=== PATIENT | female | born 1985 | race Caucasian/White ===

== ENCOUNTER 2018-02-02 17:46 | Inpatient (IN) | payer OTHER, SELFPAY ==
[2018-02-02] VITALS (9 sets, daily range): BP systolic 115–128; BP diastolic 58–81; PULSE 94–121; RESP 16–100; TEMP 37.1; O2SAT 96–100; BMI 25.4
[2018-02-02] MEDS: ALBUTEROL 2.5 MG/3 ML NEB (ADULT) INH ×2 (18:08→18:58)
[2018-02-02] MEDS: ALBUTEROL/IPRATROPIUM 3 ML AMPUL INH ×2 (18:08→21:26)
--- NOTE | 2018-02-02 18:18 | ED_ITS ---
HPI - Asthma <GELA Lowe-BC - Last Filed: 02/02/18 22:54> General Chief Complaint: Asthma Stated Complaint: ASTHMA Time Seen by Provider: 02/02/18 18:01 Source: patient Mode of arrival: ambulatory Limitations: no limitations History of Present Illness HPI Narrative: Patient presents with chief complaint of asthma attack for several days. She states her albuterol is not helping her. She has a history of severe asthma with history of ICU admission due to an asthma exacerbation. She denies any fever, productive cough, nausea vomiting diarrhea. Of note she is 10 weeks states her has been normal. She is worried that she is almost out of her preventative as the medication has been over using her albuterol. Related Data Home Medications Medication Instructions Recorded Confirmed albuterol sulfate [Ventolin HFA] 2 puff INH PRN PRN #0 07/22/16 02/03/18 fluticasone [Flovent HFA] INH BID #0 07/22/16 cetirizine 10 mg PO QDAYP PRN #0 02/21/17 02/03/18 [PROBIOTIC] 1 cap PO QPM #0 05/04/17 02/03/18 fexofenadine PO QDAYP PRN #0 05/04/17 Allergies Allergy/AdvReac Type Severity Reaction Status Date / Time latex [LATEX] Allergy Unknown Verified 02/02/18 19:10 meperidine [From DEMEROL] Allergy Unknown Verified 02/02/18 19:10 Review of Systems <GAUTAM LoweP- - Last Filed: 02/02/18 22:54> Review of Systems GENERAL: Denies chills, fatigue, malaise, fever, sweats. HEENT: Denies sinus pain, ear pain, sore throat, difficulty swallowing, dizziness. RESPIRATORY: See HPI CARDIOVASCULAR: Denies chest pain, palpitations, orthopnea, edema, GASTROINTESTINAL: Denies nausea, vomiting, abdominal pain, diarrhea, constipation, melena. : Denies dysuria, frequency, incontinence, hematuria, urinary retention. MUSCULOSKELETAL: denies weakness, joint pain, or bony pain SKIN: Denies rash, skin lesions, or other NEUROLOGIC: Denies weakness, headache, numbness, change in speech, confusion, seizures, incoordination. PSYCHIATRIC: No concerning psychosocial issues. 12 point review of systems is negative except for those stated above Exam <SANTA Lowe - Last Filed: 02/02/18 22:54> Narrative Exam Narrative: GENERAL: This is a well-nourished, well-developed patient, tri podding, 1-2 word dyspnea noted. HEAD: Atraumatic. Normocephalic. No temporal or scalp tenderness. EYES: Pupils equal round and reactive. Extraocular motions intact. No scleral icterus. No injection or drainage. ENT: Nose without bleeding, purulent drainage or septal hematoma. Throat without erythema, tonsillar hypertrophy or exudate. Uvula midline. Airway patent. NECK: Trachea midline. No JVD or lymphadenopathy. Supple, nontender, no meningeal signs. CARDIOVASCULAR: Tachycardic and rhythm without murmurs, gallops, or rubs. RESPIRATORY: Profuse inspiratory and expiratory wheezes noted bilaterally. Profuse tried a perseverative cough. No crackles or rhonchi on exam. GASTROINTESTINAL: Abdomen soft, non-tender, nondistended. No hepato-splenomegaly , or palpable masses. No guarding. EXTREMITIES: No clubbing, cyanosis, or edema. No joint tenderness, effusion, or edema noted. BACK: Nontender without deformity or crepitance. No flank tenderness. NEURO: AOx3. SKIN: No rash or erythema. Initial Vital Signs Initial Vital Signs: Vital Signs Temperature 98.7 F 02/02/18 17:50 Pulse Rate 94 H 02/02/18 17:50 Respiratory Rate 100 H 02/02/18 17:50 Blood Pressure 122/76 02/02/18 17:50 Pulse Oximetry 97 02/02/18 17:50 <Emigdio Garcia DO - Last Filed: 02/03/18 02:28> Initial Vital Signs Initial Vital Signs: Vital Signs Temperature 98.7 F 02/02/18 17:50 Pulse Rate 94 H 02/02/18 17:50 Respiratory Rate 100 H 02/02/18 17:50 Blood Pressure 122/76 02/02/18 17:50 Pulse Oximetry 97 02/02/18 17:50 Course <SANTA Lowe - Last Filed: 02/02/18 22:54> Course Narrative: I checked on the patient several times throughout her stay in the emergency department. She was placed on continuous nebulizers as well as multiple nebs by respiratory therapist. She was treated with IV Solu-Medrol. However she failed an ambulation trial, became incredibly short of breath and was not able to ambulate down the hallway without respiratory distress. I discussed at length with her the etiology of her wheezing as well as her desire to go home. Her cough is complicated by the fact that she is 10 weeks . Given her inability to ambulate, wheezing and bronchospastic cough complicated by her history of an ICU admission due to her asthma, I do not feel she was safe to be discharged. Patient agreed to be admitted for further care. I spoke with Dr. Sheldon who kindly accepted the patient at 22:30. Decision to Admit Date: 02/02/18 Decision to Admit time: 22:20 Orders Ordered: ED Orders 02/02/18 23:51 RT Consult Eval and Treat Now 02/03/18 00:10 MRSA PCR Routine Albuterol/Ipratropium (Duoneb) 3 ml INH RTQ4HR PRN PRN Reason: Shortness Of Breath Methylprednisolone (Solu-Medrol 125 Mg Vial) 60 mg IV Q6HR [facility] Last Admin: 02/03/18 01:03 Dose: 60 mg Discontinued Medications Albuterol (Ventolin) 2.5 mg INH NOW ONE Stop: 02/02/18 18:07 Last Admin: 02/02/18 18:08 Dose: 2.5 mg Albuterol (Ventolin) 2.5 mg INH NOW ONE Stop: 02/02/18 18:58 Last Admin: 02/02/18 18:58 Dose: 2.5 mg Albuterol (Ventolin) 7.5 mg INH NOW ONE Stop: 02/02/18 18:58 Last Admin: 02/02/18 18:59 Dose: 7.5 mg Albuterol/Ipratropium (Duoneb) 3 ml INH NOW ONE Stop: 02/02/18 18:06 Last Admin: 02/02/18 18:08 Dose: 3 ml Albuterol/Ipratropium (Duoneb) 3 ml INH NOW ONE Stop: 02/02/18 21:22 Last Admin: 02/02/18 21:26 Dose: 3 ml Influenza Virus Vaccine (Flu Vaccine) 0.5 ml IM .ONCE ONE Stop: 10/26/18 00:09 Methylprednisolone (Solu-Medrol 125 Mg Vial) 125 mg IV NOW ONE Stop: 02/02/18 18:55 Last Admin: 02/02/18 19:12 Dose: 125 mg Prednisone (Deltasone) 60 mg PO NOW ONE Stop: 02/02/18 18:47 Last Admin: 02/02/18 20:02 Dose: Vital Signs - 8 hr 02/02/18 18:33 02/02/18 18:59 02/02/18 19:10 Temperature 98.7 F Pulse Rate 107 H 121 H 121 H Respiratory Rate 20 22 22 Blood Pressure 122/76 Blood Pressure [Left Arm] 128/81 Pulse Oximetry 97 100 100 02/02/18 19:12 02/02/18 19:22 02/02/18 20:00 Temperature Pulse Rate 99 H 101 H 101 H Respiratory Rate 16 18 Blood Pressure Blood Pressure [Left Arm] 124/61 115/58 L Pulse Oximetry 100 99 02/02/18 20:42 02/02/18 21:11 02/03/18 00:35 Temperature 97.9 F Pulse Rate 98 H 112 H 96 H Respiratory Rate 22 24 20 Blood Pressure 136/50 L Blood Pressure [Left Arm] Pulse Oximetry 96 97 97 <Emigdio Garcia, DO - Last Filed: 02/03/18 02:28> Orders Ordered: ED Orders 02/02/18 23:51 RT Consult Eval and Treat Now 02/03/18 00:10 MRSA PCR Routine Albuterol/Ipratropium (Duoneb) 3 ml INH RTQ4HR PRN PRN Reason: Shortness Of Breath Methylprednisolone (Solu-Medrol 125 Mg Vial) 60 mg IV Q6HR [facility] Last Admin: 02/03/18 01:03 Dose: 60 mg Discontinued Medications Albuterol (Ventolin) 2.5 mg INH NOW ONE Stop: 02/02/18 18:07 Last Admin: 02/02/18 18:08 Dose: 2.5 mg Albuterol (Ventolin) 2.5 mg INH NOW ONE Stop: 02/02/18 18:58 Last Admin: 02/02/18 18:58 Dose: 2.5 mg Albuterol (Ventolin) 7.5 mg INH NOW ONE Stop: 02/02/18 18:58 Last Admin: 02/02/18 18:59 Dose: 7.5 mg Albuterol/Ipratropium (Duoneb) 3 ml INH NOW ONE Stop: 02/02/18 18:06 Last Admin: 02/02/18 18:08 Dose: 3 ml Albuterol/Ipratropium (Duoneb) 3 ml INH NOW ONE Stop: 02/02/18 21:22 Last Admin: 02/02/18 21:26 Dose: 3 ml Influenza Virus Vaccine (Flu Vaccine) 0.5 ml IM .ONCE ONE Stop: 02/03/18 00:09 Methylprednisolone (Solu-Medrol 125 Mg Vial) 125 mg IV NOW ONE Stop: 02/02/18 18:55 Last Admin: 02/02/18 19:12 Dose: 125 mg Prednisone (Deltasone) 60 mg PO NOW ONE Stop: 02/02/18 18:47 Last Admin: 02/02/18 20:02 Dose: Vital Signs - 8 hr 02/02/18 18:33 02/02/18 18:59 02/02/18 19:10 Temperature 98.7 F Pulse Rate 107 H 121 H 121 H Respiratory Rate 20 22 22 Blood Pressure 122/76 Blood Pressure [Left Arm] 128/81 Pulse Oximetry 97 100 100 02/02/18 19:12 02/02/18 19:22 02/02/18 20:00 Temperature Pulse Rate 99 H 101 H 101 H Respiratory Rate 16 18 Blood Pressure Blood Pressure [Left Arm] 124/61 115/58 L Pulse Oximetry 100 99 02/02/18 20:42 02/02/18 21:11 02/03/18 00:35 Temperature 97.9 F Pulse Rate 98 H 112 H 96 H Respiratory Rate 22 24 20 Blood Pressure 136/50 L Blood Pressure [Left Arm] Pulse Oximetry 96 97 97 MDM - Asthma <GELA Lowe-BC - Last Filed: 02/02/18 22:54> MDM Narrative Medical decision making narrative: Patient presents with severe asthma. She was tree of continuous nebulizers in the emergency department. She was not able to tolerate activity and remained short of breath. She did not tolerate ambulation trial. She is not hypoxic, but is not stable enough to be discharged. Dr. Sheldon kindly accepted the patient for an ICU admission. Patient no questions or concerns. Discharge Plan Departure Patient Disposition: Admitted As Inpatient Clinical Impression: Asthma Discharge Date/Time: 02/02/18 23:45 Interventions: ED Discharge Assessment Last Done: 02/02/18 23:45 Admit Date/Time: 02/02/18 22:51 Admit Provider: Paul Sheldon <Emigdio Garcia, - Last Filed: 02/03/18 02:28> [place] ED Attending Scott Attestation: I was immediately available in the department for consultation. Documentation has been reviewed. I agree with assessment and plan.
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
--- NOTE | 2018-02-02 18:34 | PC.NURSE ---
post 2 respiratory treatment
[2018-02-02] MEDS: ALBUTEROL 2.5 MG/3 ML NEB (ADULT) 7.5 MG INH (18:59)
--- NOTE | 2018-02-02 19:07 | PC.NURSE ---
medicated for comfort
[2018-02-02] MEDS: methylPREDNISolone 125 MG/2 ML VIAL IV (19:12)
--- NOTE | 2018-02-02 19:14 | PC.NURSE ---
no furthur coughing, breathing more relaxed, breath sound clear , diminished at the bases. full clear speech and appropriate, skin warm dry pink
--- NOTE | 2018-02-02 21:14 | RT ---
Repeat neb with duoneb given due to spasmodic continuous coughing spasm. Improved after treatment. Patient states her son has a nebulizer machine at home, stating she feels like the neb seems to help with her cough more. Provider notified
[2018-02-03] VITALS (16 sets, daily range): BP systolic 110–144; BP diastolic 44–107; PULSE 89–112; RESP 16–20; TEMP 36.6–37.4; O2SAT 96–99
--- NOTE | 2018-02-03 00:37 | PC.ADMIT ---
Addendum entered by Evelyn Pham R.N. 02/03/18 06:13: Pt states significant improvement in breathing this morning. Ambulated to the bathroom with minimal coughing and no c/o SOB. Sp02 98% RA. Lungs CTA. No acute changes since admission. Original Note: [id number] Admission Note: The patient,Hellen Peterson,32 y/o, was given written information regarding hospital policies, unit procedures and contact persons. Patient's smoking status: Former smoker. Vital Signs - 8 hr 02/02/18 17:50 02/02/18 18:33 02/02/18 18:59 Temperature 98.7 F Pulse Rate 94 H 107 H 121 H Respiratory Rate 100 H 20 22 Blood Pressure 122/76 Blood Pressure [Left Arm] 128/81 Pulse Oximetry 97 97 100 02/02/18 19:10 02/02/18 19:12 02/02/18 19:22 Temperature 98.7 F Pulse Rate 121 H 99 H 101 H Respiratory Rate 22 16 18 Blood Pressure 122/76 Blood Pressure [Left Arm] 124/61 Pulse Oximetry 100 100 02/02/18 20:00 02/02/18 20:42 02/02/18 21:11 Temperature Pulse Rate 101 H 98 H 112 H Respiratory Rate 22 24 Blood Pressure Blood Pressure [Left Arm] 115/58 L Pulse Oximetry 99 96 97 02/03/18 00:35 Temperature 97.9 F Pulse Rate 96 H Respiratory Rate 20 Blood Pressure 136/50 L Blood Pressure [Left Arm] Pulse Oximetry 97 Pt arrived from ER via WC in NAD. VSS, afebrile. Tele SR with HR 90's. Sp02 97%-100% RA. Lungs CTA, moving good air. Persistant bronchospastic [employer] cough, especially severe with ambulation to BR. Plan for BSC next time. HR upt o 130's Sp02 94% during episode. Pt understandably anxious during coughing episode. Reports 10 weeks , has not seen her OB as of yet. Oriented to room, call light and plan of care. Verbalized understanding. Will monitor.
[2018-02-03] MEDS: methylPREDNISolone 125 MG/2 ML VIAL 60 MG IV ×4 (01:03→17:38)
[2018-02-03] MEDS: ALBUTEROL/IPRATROPIUM 3 ML AMPUL INH ×4 (05:53→20:17)
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
[2018-02-03] MEDS: ALBUTEROL 2.5 MG/3 ML NEB (ADULT) INH (08:07)
--- NOTE | 2018-02-03 09:50 | DI.US.S_ITS ---
PROCEDURE: US OB <= 14 WEEKS FETUS INDICATIONS: CRAMPING OUTSIDE/PRIOR DATING DATA: Last menstrual period (LMP): 11/10/17. LMP-based estimated date of delivery (CLEO): 08/17/18. First dating scan (date and location): This study, 02/03/18. Estimated date of delivery (CLEO) from first dating scan: 10/01/18 or -7 days assuming the gestational sac like structure visualized is in fact a gestational sac and that there is an associated viable intrauterine gestation. TECHNIQUE: Real-time scanning was performed of the fetus and maternal pelvic organs, with image documentation. Endovaginal scanning was also performed to better visualize the fetus and maternal ovaries. COMPARISON: None. FINDINGS: Embryo: There is a small intrauterine gestational sac with a mean sac diameter of 1.0 cm which correlates with the very early first trimester gestational age of 5 weeks 5 days. The presence of a yolk sac within this gestational sac confirms intrauterine gestation. Viability is not yet confirmed given the early age and absence of visualized pole. Measurement variability in dating: +/- 4 weeks by LMP, +/- 7 days by mean sac diameter (use before 6 weeks gestation if crown-rump length not able to be measured), +/- 5 days by crown-rump length (up to 8 weeks 6 days gestation), +/- 7 days by crown-rump length (up to 13 weeks 6 days gestation). Maternal organs: Ovaries appear normal considering gestational status. Limited images through the kidneys demonstrate no hydronephrosis. IMPRESSION: First trimester early intrauterine gestation is present given the presence of a yolk sac within the gestational sac. A viable gestation would not be expected to be visualized at this early stage of . Assuming viable gestation is present the liver date would be projected to be centered on 10/01/18, plus or -7 days. Followup repeat early first trimester OB ultrasound likely is warranted in 7-10 days. Dictated by: Daniel King M.D. on 02/03/2018 at 14:40 Approved by: Daniel King M.D. on 02/03/2018 at 14:43
--- NOTE | 2018-02-03 10:09 | PC.NURSE ---
Addendum entered by Samantha Torres R.N. 02/03/18 14:28: message left with Dr. Enriquez's office about finger xr, WBC elevated. pt transfered to room 203 Original Note: Addendum entered by Samantha Torres R.N. 02/03/18 14:21: report given to Ninfa GANT. pt anxious about getting finger XR and being . pt verbalized and stated she felt better. Original Note: Addendum entered by Samantha Torres R.N. 02/03/18 13:03: Dr. Enriquez is to assess finger. re-dressed it with triple antibiotic and telfa. XR ordered. Family at bedside. Original Note: pt up to shower and left 4th finger tip closed in bathroom door. Dr. Enriquez notified. pt back to bed, left hand elevated on pillow with ice pack to finger. 4th finger secured with tongue blade and kerlix. base of finger nail lifted up from trauma and hematoma underneath. Dr. Enriquez notified of temp 99.3, vaginal odor and mild pelvic cramping. Ultra sound ordered.
[2018-02-03 10:42] LABS: Add Manual Diff / Slide Review NO; Basophils Percent Auto 0.2 % (0-2); Hemoglobin 12.3 g/dL (12.0-16.0); Lymphocytes Percent Auto 3.9 % (25-40); Mean Corpuscular HGB Conc 33.2 % (30-36); Mean Corpuscular Hemoglobin 30.3 PG (26-34); Mean Corpuscular Volume 91.3 fL (80-100); Neutrophils Absolute Auto 23600 /uL (3000-5900); Neutrophils Percent Auto 94.9 % (50-75); Platelet Count 369 X10^3/uL (150-400); Red Blood Cell Count 4.05 X10^6/uL (4.0-5.2); Red Cell Distribution Width 13.1 % (11.6-14.8); White Blood Cell Count 24.8 X10^3/uL (4.5-11.0)
--- NOTE | 2018-02-03 13:01 | DI.RAD.S_ITS ---
PROCEDURE: XR FINGER LT MIN 2V INDICATIONS: shut door on finger and nail is partial off TECHNIQUE: AP hand, 2 views of the left fourth finger(s) acquired. COMPARISON: None. FINDINGS: Bones: Acute oblique fracture involving distal shaft of fourth distal phalanx is seen. No significant displacement or angulation is noted at fracture site. No suspicious bony lesions. Soft tissues: No suspicious soft tissue calcifications. Soft tissue swelling around distal portion of fourth digit is seen. IMPRESSION: Acute minimally displaced fracture involving distal shaft of fourth distal phalanx with surrounding soft tissue swelling. Dictated by: Piter Dove M.D. on 02/03/2018 at 13:45 Approved by: Piter Dove M.D. on 02/03/2018 at 13:45
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
[2018-02-03] MEDS: ACETAMINOPHEN 325 MG TABLET 650 MG PO ×2 (13:10→18:54)
--- NOTE | 2018-02-03 13:11 | P.PN_ITS ---
Subjective Date Patient Seen: 02/03/18 Time Patient Seen: 13:08 Interval history: Patient got her finger slammed in a door in the bathroom. Here to examine it. Patient's 4th digit on left hand. Trauma to the tip of the finger. Proximal aspect of the nail has been avulsed from the nail bed. Sensitive to the touch. Bleeding has stopped. Pain is minimal. Exam Vital Signs (past 8 hours): - 02/03/18 05:57 02/03/18 06:00 02/03/18 08:07 Temperature 98.2 F Pulse Rate 99 H 100 H Respiratory Rate 20 17 Blood Pressure 132/79 Pulse Oximetry 98 98 98 02/03/18 09:12 02/03/18 11:52 Temperature 99.3 F Pulse Rate 110 H Respiratory Rate 20 Blood Pressure 118/44 L Pulse Oximetry 98 97 Oxygen Delivery Method Room Air Oxygen Flow Rate 0 Narrative Exam Narrative: Proximal nail avulsion of the 4th digit of the left finger with bruising and mild bleeding Objective Labs Result Diagrams: 02/03/18 10:08 Labs: Laboratory Results - last 24 hr 02/03/18 02/03/18 00:10 10:08 WBC 24.8 H RBC 4.05 Hgb 12.3 Hct 37.0 MCV 91.3 MCH 30.3 MCHC 33.2 RDW 13.1 Plt Count 369 Neut % (Auto) 94.9 H Lymph % (Auto) 3.9 L [place] % (Auto) 1.0 L Eos % (Auto) 0.0 L Baso % (Auto) 0.2 Neut # (Auto) 15014 H Nasal Screen MRSA (PCR) Negative for mrsa Assessment & Plan Plan: Assessment/Plan Narrative: Proximal nail avulsion due to injury in the bathroom door. X-ray of the finger we done. Bacitracin nonstick Telfa and bandage will be placed over the top. There is a fracture we will considered open and place her on an antibiotic and splint. If just trauma to the now. We will dress and bandaged appropriately. Abdominal cramping and previous vaginal bleeding. Ultrasound shows 5 week intrauterine gestational based on report from the sound engineering technician. Quality VTE Deep Vein Thrombosis/Pulmonary Embolism Present on Admission: No
--- NOTE | 2018-02-03 13:42 | CM.IDA ---
Discharge Planning/Care Management CM Discharge Assessment Start: 02/03/18 13:01 Freq: Status: Active Protocol: Document 02/03/18 13:03 TRUMAN (Rec: 02/03/18 13:42 TRUMAN [id number]) Discharge Planning Assessment Assigned Oil Driller STEWART Garcia DPOA/Assigned Designee Name Octavio Peterson, spouse Contact Information [phone] Advance Directives? No History Provided By Patient Prior Living Arrangements House Household Members spouse children Type of transporation used prior to Drives own vehicle admit Independent with ADL's Yes Is patient alert and oriented? Yes Comment Very lou 32 yo, indp and active, mom to a 9 and 2 yo. Spouse taking time off work to take care of kiddos. Pt is 10 wks . Caregiver for Another Yes: Children Comment Met w/pt today, explained role . Pt feels she has all she needs for her return home once medically stable. Spouse can take some time off work but pt does not indicate how long. Pt's and two kiddos entered the room at this point . Name/contact info left on pt 's whiteboard. Barriers to Discharge No Comment CM team following closely in case any DC needs or concerns arise. Discharge Plan Home Transportation Arrangement Family Referrals Initiated None needed Additional Comment None needed at this time. Inpatient Status as of 02/02/18 Whiteboard Updated in Patient Room with Yes name and ext. # of Oil Driller Review Status In Process
--- NOTE | 2018-02-03 23:09 | PC.NURSE ---
1900 - Pt c/o pain to left AC IV site. Site visual assessment WNL, no erythema no bruising. Site flushes without pain. Pt states a small bump in skin at insertion site as internal hemorrhage. Reviewed site assessment and UE elevated on pillow. Pt also c/o numbness to the tip of fx left finger. Drsg taken down for visual assessment. WNL. Drsg replaced. Ice pack. Elevated on pillow. APAP given for pain.
[2018-02-04 00:55] VITALS: BP 104/48; PULSE 97; RESP 20; TEMP 36.9; O2SAT 98
[2018-02-04 01:05] VITALS: O2SAT 98
[2018-02-04 06:04] LABS: Blood Urea Nitrogen 10 mg/dL (7-17); Calcium 9.5 mg/dL (8.4-10.2); Carbon Dioxide 23 mmol/L (22-32); Chloride 104 mmol/L (98-107); Estimated Glomerular Filt Rate > 60.0 mL/min (>60); Glucose 123 mg/dL (70-100); HEMOLYSIS < 15 (0-50); Potassium 4.1 mmol/L (3.4-5.1); Sodium 140 mmol/L (137-145)
[2018-02-04] MEDS: predniSONE 20 MG TABLET 60 MG PO (06:19)
[2018-02-04 06:23] VITALS: BP 104/56; PULSE 86; RESP 18; TEMP 36.8; O2SAT 98
[2018-02-04 07:25] VITALS: BP 107/52; PULSE 74; RESP 16; TEMP 36.7; O2SAT 97
--- NOTE | 2018-02-04 08:54 | PM.DS.1 ---
History of Present Illness Chief complaint: ASTHMA Narrative: 32-year-old female G3 para 2 approximately 10 weeks . Admit to the hospital with asthma exacerbation. She has had has mild on and off for many years. Previously hospitalized during her last for an asthma exacerbation. She is admitted to the ICU she did not require mechanical ventilation. She says her asthma is exacerbated by the cold weather certain allergies and her previous . She states her symptoms began about 1 week ago. She began to become short of breath like she related with her previous asthma symptoms she used her albuterol inhaler at home. She is trying some natural things like honey an elder [place]. She says despite using her albuterol inhaler her symptoms got worse. She then went to use her Flonase Flovent which she did not really or had not really needed for quite some time. She noticed that they were . Over the last 48 hr her breathing got worse and worse despite her best efforts and patient came to the emergency room. Where she was found to have an exacerbation of her asthma requiring hospital admission. She is 10 weeks . Two previous normal pregnancies. She says she has some initial spotting and bleeding but she said her last test everything was okay. She has an obstetrical appointment here in the next few weeks. Her current symptoms include cough feeling of shortness of breath chest tightness and heaviness. She says she is hungry. She says she slept okay last night. She has not had a flu shot this year. Her oxygen status has remained stable. Discharge Providers Date of admission: 02/02/18 22:51 Discharge provider: Anoop Enriquez MD Discharge Date: 02/04/18 Summary Discharge Diagnosis: Acute asthma exacerbation Intrauterine Fracture 4th phalanx left hand Hospital Course: Patient was admitted the hospital for acute asthma exacerbation. Patient was given IV steroids and then transitioned to oral steroids. She received nebulizers. Over the ensuing hospital stay she had improvement of her respiratory status her breathing as well as her wheezing was much improved. By the time she was leaving she was stable on room air oxygen had no further wheezing had an intermittent cough and was responding to medication. Patient's finger was wrapped and splinted. She will watch for signs of infection. Time Spent with Patient Less than 30 minutes Exam Vital Signs (past 8 hours): - 02/04/18 00:55 02/04/18 01:05 02/04/18 06:23 Temperature 98.4 F 98.2 F Pulse Rate 97 H 86 Respiratory Rate 20 18 Blood Pressure 104/48 L 104/56 L Pulse Oximetry 98 98 98 02/04/18 07:25 Temperature 98.1 F Pulse Rate 74 Respiratory Rate 16 Blood Pressure 107/52 L Pulse Oximetry 97 Oxygen Delivery Method Room Air Oxygen Flow Rate 0 Narrative Exam Narrative: Gen.: Alert and oriented x3 no apparent distress. HEENT: NCAT PERRLA tympanic membranes are clear nares are patent oral mucosa is moist no tonsillar hypertrophy neck is supple without lymphadenopathy no thyroid enlargement. Cardio: S1-S2 regular rate and rhythm no murmurs appreciated. Respiratory: Lungs are clear to auscultation no wheezes or crackles normal respiratory effort. Abdomen: Soft nontender no rebound or guarding no liver spleen enlargement no appreciable hernias Extremities: Full range of motion no appreciable weakness no cyanosis or edema. Neurologic: Grossly intact. Objective Labs Result Diagrams: 02/03/18 10:08 02/04/18 05:31 Labs: Laboratory Results - last 24 hr 02/03/18 02/04/18 10:08 05:31 WBC 24.8 H RBC 4.05 Hgb 12.3 Hct 37.0 MCV 91.3 MCH 30.3 MCHC 33.2 RDW 13.1 Plt Count 369 Neut % (Auto) 94.9 H Lymph % (Auto) 3.9 L [place] % (Auto) 1.0 L Eos % (Auto) 0.0 L Baso % (Auto) 0.2 Neut # (Auto) 66354 H Sodium 140 Potassium 4.1 Chloride 104 Carbon Dioxide 23 BUN 10 Creatinine 0.50 L Estimated GFR > 60.0 BUN/Creatinine Ratio 20.0 Glucose 123 H Calcium 9.5 Discharge Plan Discharge Plan Discharge Problem: Asthma Patient Disposition: Home Discharge comment: Home follow-up in 7 days Discharge Med Rec/Prescriptions Prescriptions: New fluticasone [Flovent HFA] 110 mcg/actuation HFA aerosol inhaler 2 puff INHALATION BID Qty: 12 RF: 3 prednisone 20 mg tablet See Label Instructions .ROUTE .COMPLEX Qty: 40 RF: 0 Continue fluticasone [Flovent HFA] 110 mcg/actuation Hfa Aerosol Inhaler 1 puff INH BID Qty: 0 RF: 0 albuterol sulfate [Ventolin HFA] 90 MCG/PUFF HFA aerosol inhaler 2 puff INH PRN PRN (Reason: Bronchospasm) Qty: 0 RF: 0 cetirizine 10 MG tablet 10 mg PO QDAYP PRN (Reason: Allergy Symptoms) Qty: 0 RF: 0 fexofenadine 180 mg Tablet 1 tab PO QDAYP PRN (Reason: Allergy Symptoms) Qty: 0 RF: 0 [PROBIOTIC] 1 cap PO QPM Qty: 0 RF: 0 Skin/Wound/Dressing Care Dressing: wound care to finger twice daily. Discharge Data Attending Provider: Anoop Enriquez Admit Date/Time: 02/02/18 22:51 Quality VTE Deep Vein Thrombosis/Pulmonary Embolism Present on Admission: No
--- NOTE | 2018-02-04 09:19 | PC.NURSE ---
Pt alert and oriented, voicing appropriate concerns and questions. Independent in room. Set up for B'fast.
--- NOTE | 2018-02-04 09:53 | PC.NURSE ---
Resp rate even, some coarseness though clear. No overt tightness. Pt's Left fourth finger continues bandaged and splinted. Pt states to come and see today. Pt up independently with visitor in room.
--- NOTE | 2018-02-04 12:14 | PC.NURSE ---
Pt discharged to care of friend. IV d/c'd intact. Dressing supplies given to Pt along with instructions. Pt offers no overt complaint with plan and is comfortable with Dr. Enriquez's plan. Pt escorted to car by Lydia EDWARDS
== END 2018-02-04 12:15 | disposition home or self-care (01) | DRG 832 ==
LOC: ED 17:58 → ICU 22:52 → AC 02-03 14:32
PROVIDERS: Admitting Provider Internal Medicine; Emergency Provider Nurse Practitioner Family; Visit Provider Family Medicine
DX: O26.891 Other specified pregnancy related conditions, first trimester (principal); J45.901 Unspecified asthma with (acute) exacerbation; Z3A.10 10 weeks gestation of pregnancy; S67.194A Crushing injury of right ring finger, initial encounter; S62.634A Displaced fracture of distal phalanx of right ring finger, initial encounter for closed fracture; W23.1XXA Caught, crushed, jammed, or pinched between stationary objects, initial encounter
CPT/HCPCS: 36415; 73140; 76801; 76817; 80048; 85025; 87797; 94150; 94640; 96374; 99223; 99238; 99283; 99284; J2930; J7613

== ENCOUNTER → 2018-03-07 09:13 | Outpatient (CLI) | payer OTHER, SELFPAY ==
[2018-02-02 22:54] VITALS: BMI 25.4
[2018-03-07 10:22] LABS: Add Manual Diff / Slide Review NO; Basophils Percent Auto 0.5 % (0-2); Eosinophils Percent Auto 0.7 % (2-4); Hematocrit 38.4 % (36-46); Lymphocytes Percent Auto 29.4 % (25-40); Mean Corpuscular HGB Conc 33.9 % (30-36); Mean Corpuscular Hemoglobin 30.8 PG (26-34); Mean Corpuscular Volume 90.8 fL (80-100); Monocytes Percent Auto 5.9 % (3-14); Neutrophils Absolute Auto 6000 /uL (3000-5900); Neutrophils Percent Auto 63.5 % (50-75); Platelet Count 349 X10^3/uL (150-400); Red Blood Cell Count 4.23 X10^6/uL (4.0-5.2); Red Cell Distribution Width 13.2 % (11.6-14.8); White Blood Cell Count 9.5 X10^3/uL (4.5-11.0)
[2018-03-07 10:23] LABS: Appearance Urine UA CLEAR; Bilirubin Urine UA NEGATIVE (NEGATIVE); Color Urine UA YELLOW; Glucose Urine UA NEGATIVE (Normal); Ketones Urine UA NEGATIVE (NEGATIVE); Leukocyte Esterase Urine UA TRACE (NEGATIVE); Nitrite Urine UA NEGATIVE (Negative); Occult Blood Urine UA NEGATIVE (Negative); Protein Urine UA NEGATIVE (Negative); Specific Gravity Urine UA <=1.005 (1.000-1.035); Urobilinogen Urine UA 0.2 E.U./dL (0.2); pH Urine UA 7.5 (4.5-8.0)
[2018-03-07 10:40] LABS: Bacteria Urine None Seen
[2018-03-07 10:43] LABS: RBC Urine 0-1/HPF (0-5/HPF); Squamous Epithelial Cell Urine 1-5 /HPF; WBC Urine 1-5/HPF (0-5/HPF)
[2018-03-07 11:47] LABS: Hepatitis B Surface Antigen NEGATIVE s/c (NEGATIVE); Rubella Antibody IgG 71.8 IU/mL (>15)
[2018-03-07 12:10] LABS: HIV 1 and 2 Antibody NEGATIVE (NEGATIVE); Hep C Virus Ab w/Reflex Quant NEGATIVE s/c (NEGATIVE)
[2018-03-09 14:46] LABS: RPR Screen Nonreactive (Nonreactive)
[2018-03-10 15:39] LABS: HSV 2 IGG AB 6.01 index (< 0.90); HSV1IGG 8.02 index (< 0.90)
== END ==
PROVIDERS: PCP Family Medicine; Visit Provider Family Medicine
DX: Z34.91 Encounter for supervision of normal pregnancy, unspecified, first trimester (principal)
CPT/HCPCS: 36415; 80055; 81003; 81015; 86695; 86696; 86703; 86787; 86803; 86850; 86900; 86901; 87086

== ENCOUNTER → 2018-05-31 12:06 | Outpatient (CLI) | payer OTHER, SELFPAY ==
[2018-02-02 22:54] VITALS: BMI 25.4
--- NOTE | 2018-05-31 12:07 | DI.US.S_ITS ---
PROCEDURE: US OB >= 14 WEEKS FETUS INDICATIONS: ANATOMY OUTSIDE/PRIOR DATING DATA: Last menstrual period (LMP): Not available. LMP-based estimated date of delivery (CLEO): Not available. First dating scan (date and location): This study, [facility]. Estimated date of delivery (CLEO) from first dating scan: 09/25/18. TECHNIQUE: Real-time scanning was performed of the fetus, with image documentation and biometric measurements. Endovaginal scanning: Not needed for this study COMPARISON: [facility], , OB >= 14 WEEKS FETUS, 05/22/2018, 10:57. FINDINGS: General: A single living intrauterine gestation is present. Presentation: Vertex. Placenta: Placental position is anterior, without previa. Amniotic fluid index: 17.3 cm, normal range is 5-24 cm. heart rate: 135 beats per minute. Maternal cervical canal: 3.1 cm long. Normal lower limit is 2.5 cm. biometrics: Biparietal diameter: 5.8 cm, 23 weeks 5 days Head circumference: 21.5 cm, 23 weeks 4 days Abdominal circumference: 19.0 cm, 23 weeks 5 days Femur length: 3.8 cm, 20 weeks 1 day Estimated gestational age from initial scan: not applicable. Composite gestational age from present scan: 23 weeks 2 days Estimated weight: 564 g Measurement variability for biometric dating: +/- 7 days from 14 weeks to 15 weeks 6 days gestation, +/- 10 days from 16 weeks to 21 weeks 6 days gestation, +/- 2 weeks from 22 weeks to 27 weeks 6 days gestation, +/- 3 weeks for 28 weeks gestation or later. weight reference: 4500 g or EFW >90/95% is considered macrosomia or large for gestational age. EFW <10% is small for gestational age. EFW 5% or less is considered intra-uterine growth restriction. Anatomic survey: Neuro: Ventricles are non-dilated at less than 10 mm. Cisterna magna is normal at 3-11 mm. Cerebellum is normal in size and morphology. Nuchal skin fold: Normal at less than 6 mm between 14-21 weeks gestational age. Face: Nose and lips, facial profile are normal. Spine: No evidence for spina bifida. Heart: 4-chambered heart is present, with normal ventricular outflow tracts. Diaphragm: Diaphragm is intact. Stomach: Left-sided stomach is present. Kidneys: No hydronephrosis. Normal is less than 5 mm in 2nd trimester, less than 7 mm in 3rd trimester. Cord: 3-vessel cord has orthotopic insertion. Bladder: Normal in size. Extremities: All 4 extremities identified. IMPRESSION: 23 week 2 day gestational age with no evidence of anomaly. Heart rate 135 beats per minute, delivery date is projected to be centered on 09/25/18. No anomaly seen. Dictated by: Daniel King M.D. on 05/31/2018 at 13:29 Approved by: Daniel King M.D. on 05/31/2018 at 13:31
== END ==
PROVIDERS: Family Provider Specialist; PCP Family Medicine; Visit Provider Specialist
DX: Z36.89 Encounter for other specified antenatal screening (principal); Z3A.23 23 weeks gestation of pregnancy
CPT/HCPCS: 76811

== ENCOUNTER → 2018-06-23 09:39 | Outpatient (CLI) | payer OTHER, SELFPAY ==
[2018-02-02 22:54] VITALS: BMI 25.4
[2018-06-23 12:20] LABS: Hematocrit 31.5 % (36-46); Hemoglobin 10.7 g/dL (12.0-16.0)
[2018-06-23 14:31] LABS: GTT (PREG) 1 Hour PP 50gm Dose 104 mg/dL (76-139)
== END ==
PROVIDERS: Family Provider Specialist; PCP Family Medicine; Visit Provider Specialist
DX: Z20.818 Contact with and (suspected) exposure to other bacterial communicable diseases (principal); Z34.82 Encounter for supervision of other normal pregnancy, second trimester; Z3A.26 26 weeks gestation of pregnancy
CPT/HCPCS: 36415; 82950; 85014; 85018; 87081

== ENCOUNTER → 2018-06-24 13:36 | Outpatient (CLI) | payer OTHER, SELFPAY ==
[2018-02-02 22:54] VITALS: BMI 25.4
== END ==
PROVIDERS: Family Provider Specialist; PCP Family Medicine; Visit Provider Physician Assistant
DX: J02.9 Acute pharyngitis, unspecified (principal)
CPT/HCPCS: 87070

== ENCOUNTER → 2018-09-07 13:49 | Outpatient (CLI) | payer OTHER, SELFPAY ==
[2018-02-02 22:54] VITALS: BMI 25.4
[2018-09-08 14:10] LABS: Strep Grp B PCR NEG for Grp B Strep
== END ==
PROVIDERS: Family Provider Specialist; PCP Family Medicine; Visit Provider Specialist
DX: Z34.83 Encounter for supervision of other normal pregnancy, third trimester (principal); Z3A.36 36 weeks gestation of pregnancy
CPT/HCPCS: 87653

== ENCOUNTER 2018-09-19 08:02 | Observation (INO) | payer OTHER, SELFPAY ==
[2018-02-02 22:54] VITALS: BMI 25.4
--- NOTE | 2018-09-19 09:36 | PM.OBTRLD ---
Visit Information Visit Information Reason for Evaluation: Yes rule out labor [facility] Medical History (Updated 09/19/18 @ 09:38 by Edel Juárez MD) Asthma (Chronic ~2016) Chiari malformation type I (Chronic ~2016) GERD (gastroesophageal reflux disease) (Chronic) Heavy menstrual period (Chronic) Herpes (Chronic) Human papilloma virus (Chronic) Post traumatic stress disorder (PTSD) (Chronic) Abnormal Pap smear of cervix (Resolved) Surgical History (Updated 02/16/18 @ 21:57 by Anisha Michaud) Anesthesia (Resolved) Cyst (Resolved) History of appendectomy (Resolved) History of surgery (Resolved) History of tonsillectomy (Resolved) Family History (Updated 02/16/18 @ 22:00 by Anisha Michaud) Father Heart disease Hyperlipidemia Hypertension Mother Chiari malformation type I Asthma Brother Asthma Sister Asthma Social History household members: spouse and children Smoking Status: Former smoker Social History household members: spouse and children Smoking Status: Former smoker Evaluation Evaluation Baseline heart rate: 140 Variability: Moderate (11-25) monitor accelerations: Present monitor decelerations: Absent Contraction Frequency (minutes): 4 Uterine Contraction Intensity: Moderate Category of Tracing: I Cervical dilation (cm): 0 Diagnosis, Plan/Disposition Final Diagnosis (1) Irregular contractions: Current Visit: Yes Status: Acute Plan/Disposition Plan: After 1.5hrs ambulation, no change in cervical dilation. Stable to d/c home. Discussed precautions for returning. OB Disposition: home
--- NOTE | 2018-09-19 09:39 | P.TNLD_ITS ---
Visit Information Visit Information Reason for Evaluation: Yes rule out labor [facility] Medical History (Updated 09/19/18 @ 09:38 by Edel Juárez MD) Asthma (Chronic ~2016) Chiari malformation type I (Chronic ~2016) GERD (gastroesophageal reflux disease) (Chronic) Heavy menstrual period (Chronic) Herpes (Chronic) Human papilloma virus (Chronic) Post traumatic stress disorder (PTSD) (Chronic) Abnormal Pap smear of cervix (Resolved) Surgical History (Updated 02/16/18 @ 21:57 by Anisha Michaud) Anesthesia (Resolved) Cyst (Resolved) History of appendectomy (Resolved) History of surgery (Resolved) History of tonsillectomy (Resolved) Family History (Updated 02/16/18 @ 22:00 by Anisha Michaud) Father Heart disease Hyperlipidemia Hypertension Mother Chiari malformation type I Asthma Brother Asthma Sister Asthma Social History household members: spouse and children Smoking Status: Former smoker Social History household members: spouse and children Smoking Status: Former smoker Evaluation Evaluation Baseline heart rate: 140 Variability: Moderate (11-25) monitor accelerations: Present monitor decelerations: Absent Contraction Frequency (minutes): 4 Uterine Contraction Intensity: Moderate Category of Tracing: I Cervical dilation (cm): 0 Diagnosis, Plan/Disposition Final Diagnosis (1) Irregular contractions: Current Visit: Yes Status: Acute Plan/Disposition Plan: After 1.5hrs ambulation, no change in cervical dilation. Stable to d/c home. Discussed precautions for returning. OB Disposition: home
== END 2018-09-19 10:03 | disposition home or self-care (01) ==
PROVIDERS: Admitting Provider Specialist; Family Provider Specialist; PCP Family Medicine; Visit Provider Specialist
DX: Z36.9 Encounter for antenatal screening, unspecified (principal); O62.2 Other uterine inertia; R10.31 Right lower quadrant pain; Z3A.39 39 weeks gestation of pregnancy
CPT/HCPCS: 59025; 59050; G0378; G0379

== ENCOUNTER 2018-09-25 11:59 | Outpatient (CLI) | payer OTHER, SELFPAY ==
[2018-02-02 22:54] VITALS: BMI 25.4
--- NOTE | 2018-09-25 12:44 | PM.OBTRLD ---
Visit Information Visit Information Date of evaluation: 09/25/18 Primary OB Provider: Ana Elizabeth Reason for Evaluation: Yes rule out labor Vital Signs Vital Signs: Blood pressure 122/68, pulse 95, temperature 37.0? [facility] Medical History (Updated 09/19/18 @ 09:38 by Edel Juárez MD) Asthma (Chronic ~2016) Chiari malformation type I (Chronic ~2016) GERD (gastroesophageal reflux disease) (Chronic) Heavy menstrual period (Chronic) Herpes (Chronic) Human papilloma virus (Chronic) Post traumatic stress disorder (PTSD) (Chronic) Abnormal Pap smear of cervix (Resolved) Surgical History (Updated 02/16/18 @ 21:57 by Anisha Michaud) Anesthesia (Resolved) Cyst (Resolved) History of appendectomy (Resolved) History of surgery (Resolved) History of tonsillectomy (Resolved) Family History (Updated 02/16/18 @ 22:00 by Anisha Michaud) Father Heart disease Hyperlipidemia Hypertension Mother Chiari malformation type I Asthma Brother Asthma Sister Asthma Social History household members: spouse and children Smoking Status: Former smoker Social History household members: spouse and children Smoking Status: Former smoker Evaluation Evaluation Baseline heart rate: 120 Variability: Moderate (11-25) monitor accelerations: Present monitor decelerations: Absent Contraction Frequency (minutes): 0 Category of Tracing: I Non-invasive Membranes Rupture Test: negative Diagnosis, Plan/Disposition Final Diagnosis (1) Irregular contractions: Current Visit: No Status: Acute Plan/Disposition Plan: Patient not in active labor with no rupture membranes follow-up appointment in 2 days OB Disposition: home
== END 2018-09-25 12:56 | disposition home or self-care (01) ==
LOC: LABOR 12:24 → OB 09-26 15:35
PROVIDERS: Family Provider Specialist; PCP Family Medicine; Visit Provider Specialist
DX: O47.1 False labor at or after 37 completed weeks of gestation (principal); W18.39XA Other fall on same level, initial encounter; Z3A.39 39 weeks gestation of pregnancy
CPT/HCPCS: 59025; 84112; G0378; G0379

== ENCOUNTER 2018-09-26 11:21 | Outpatient (CLI) | payer OTHER, SELFPAY ==
[2018-02-02 22:54] VITALS: BMI 25.4
== END 2018-09-26 12:11 | disposition home or self-care (01) ==
LOC: LABOR 12:11 → OB 09-28 15:11
PROVIDERS: Family Provider Specialist; PCP Family Medicine; Visit Provider Specialist
DX: O26.893 Other specified pregnancy related conditions, third trimester (principal); R10.31 Right lower quadrant pain; Z3A.39 39 weeks gestation of pregnancy
CPT/HCPCS: 59025; G0378; G0379

== ENCOUNTER 2018-09-29 06:54 | Inpatient (IN) | payer OTHER, SELFPAY ==
[2018-02-02 22:54] VITALS: BMI 25.4
--- NOTE | 2018-09-29 07:29 | PM.OBHP.1 ---
OB HPI Date/Time Date of admission: 09/29/18 Date Patient Seen: 09/29/18 Time Patient Seen: 07:29 History of Present Condition Chief complaint: : 9 Para: 2 Estimated Date of Delivery: 10/01/18 Estimated Gestational Age (weeks): 39 Narrative: Hellen Peterson is a 32 year old female admitted for induction for maternal discomfort Indications Indication for induction OB: maternal discomfort History of Present care: good care, initiated at week # (10), number of visits (12) and pounds weight gain (27) Dating criteria: LMP confirmed by 1st trimester US Ultrasounds: normal mid trimester US Obstetrical complications: none Medical complications: none Preadmission Labs Blood type: O (+) positive -: Antibody screen: negative, GBS status: negative, HBsAG: negative, HIV: negative, HSV 1: positive, HSV 2: positive and RPR/VDLR: negative -: Chlamydia screen: not detected -: Rubella: immune and Varicella: immune HCAB: negative PAP: Normal 1 hr GTT: 104 Prior (ies) History: 5 SAB, 04/03/09 Male, 8# 15oz 06/07/15 Male 8# 13oz Evaluation Evaluation Baseline heart rate: 130 Variability: Moderate (11-25) monitor accelerations: Present monitor decelerations: Absent Contraction Frequency (minutes): 5 Uterine Contraction Intensity: Moderate Category of Tracing: I Cervical dilation (cm): 3 Cervical effacement (%): 75 station: -1 [facility] Medical History (Updated 09/19/18 @ 09:38 by Edel Juárez MD) Asthma (Chronic ~2015) Chiari malformation type I (Chronic ~2015) GERD (gastroesophageal reflux disease) (Chronic) Heavy menstrual period (Chronic) Herpes (Chronic) Human papilloma virus (Chronic) Post traumatic stress disorder (PTSD) (Chronic) Abnormal Pap smear of cervix (Resolved) Surgical History (Updated 02/16/18 @ 21:57 by Anisha Michaud) Anesthesia (Resolved) Cyst (Resolved) History of appendectomy (Resolved) History of surgery (Resolved) History of tonsillectomy (Resolved) Family History (Updated 02/16/18 @ 22:00 by Anisha Michaud) Father Heart disease Hyperlipidemia Hypertension Mother Chiari malformation type I Asthma Brother Asthma Sister Asthma Social History household members: spouse and children Smoking Status: Former smoker Social History household members: spouse and children Smoking Status: Former smoker Meds Home Medications Medication Instructions Recorded Confirmed Type albuterol sulfate [Ventolin HFA] 2 puff INH PRN PRN #0 07/22/16 08/23/18 History cetirizine 10 mg PO QDAYP PRN #0 02/21/17 08/23/18 History [PROBIOTIC] 1 cap PO QPM #0 05/04/17 08/23/18 History fexofenadine 1 tab PO QDAYP PRN #0 05/04/17 08/23/18 History fluticasone propionate [Flovent 2 puff INHALATION BID #12 gram 02/04/18 08/23/18 Rx HFA] acyclovir 400 mg tablet 400 mg PO BID #60 tab 09/07/18 Rx Double Electric Breast Pump #1 each 09/18/18 Rx Allergies Allergy/AdvReac Type Severity Reaction Status Date / Time latex [LATEX] Allergy Unknown Verified 08/23/18 15:52 meperidine [From DEMEROL] Allergy Unknown Verified 08/23/18 15:52 cold urticaria AdvReac Uncoded 08/23/18 15:52 Review of Systems Review of Systems Patient denies headaches, scotomata, epigastric pain. Baby has been moving well. No rupture membranes. She is having contractions. All systems reviewed & are unremarkable except as noted in HPI and below Exam Vital Signs (past 8 hours): Blood pressure 118/70, pulse 79, temperature 97.9 Narrative Exam Narrative: HEENT exam within normal limits. Lungs are clear to auscultation and percussion. Heart is regular rate and rhythm no S3-S4 or murmurs. Abdomen is gravid. Extremities without edema and nontender. Objective Labs Result Diagrams: 09/29/18 07:50 Assessment and Plan Assessment and Plan Assessment and Plan narrative: 39w5d with maternal discomfort admitted for Pitocin induction for maternal discomfort.
[2018-09-29] MEDS: LACTATED RINGERS 1,000 ML 100 ML IV ×3 (07:50→13:59)
[2018-09-29] MEDS: OXYTOCIN PREMIX 30 UNIT/500 ML PLAST..BAG IV (08:17)
[2018-09-29 08:22] VITALS: BP 118/70
[2018-09-29 08:28] LABS: Add Manual Diff / Slide Review NO; Basophils Absolute Auto 100 /uL (0-100); Basophils Percent Auto 0.9 % (0-2); Eosinophils Absolute Auto 100 /uL (0-450); Eosinophils Percent Auto 0.7 % (2-4); Hematocrit 34.1 % (36-46); Hemoglobin 11.4 g/dL (12.0-16.0); Lymphocytes Absolute Auto 2900 /uL (1100-4500); Lymphocytes Percent Auto 24.7 % (25-40); Mean Corpuscular HGB Conc 33.4 % (30-36); Mean Corpuscular Volume 89.7 fL (80-100); Monocytes Absolute Auto 700 /uL (0-900); Monocytes Percent Auto 6.1 % (3-14); Neutrophils Absolute Auto 7900 /uL (1500-7000); Neutrophils Percent Auto 67.6 % (50-75); Platelet Count 334 X10^3/uL (150-400); Red Cell Distribution Width 14.3 % (11.6-14.8); White Blood Cell Count 11.7 X10^3/uL (4.5-11.0)
--- NOTE | 2018-09-29 19:16 | PM.OBPRVD ---
Delivery date: 09/29/18 Intrapartal events: None Induction method: per pitocin protocol Delivery augmentation: rupture of membranes Delivery monitor: external FHT and external uterine Route of delivery: L&D Laceration Description: Perineal - 2nd Degree Delivery repair: chromic (3-0) Estimated blood loss (mL): 150 Anesthesia type: Epidural Narrative: Patient was admitted for induction maternal discomfort. She received Pitocin. She received an epidural catheter for pain control. She had AROM for clear fluid. She progressed to complete pushing. After delivery of the head there was a 2 minutes shoulder dystocia. The shoulder delivered after suprapubic pressure and rotation of the anterior shoulder. The delivered spontaneously and was placed on maternal abdomen. After approximately 1 minute of stimulation without adequate respiratory effort the cord was clamped cut and the infant taken to the warmer. The baby responded quickly to stimulation there. The placenta delivered spontaneously, intact, with 3 vessels. There were no cervical or vaginal tears. A midline second-degree tear was repaired with 3 0 chromic suture in the usual 2 layer fashion. Estimated blood loss 150 cc. Both infant mother doing well. Baby 1: gender: Male Presentation: vertex position: Right Occiput Anterior Placenta delivery description: Spontaneous cord vessel description: 3 Vessels score (1 min): 7 score (5 min): 9 Plan for aftercare: Routine care
[2018-09-29 21:32] VITALS: TEMP 36.9
[2018-09-29] MEDS: IBUPROFEN 600 MG TABLET PO (21:32)
[2018-09-29] MEDS: DERMOPLAST SPRAY 20% 60 ML 1 SPRAY TOP (21:32)
[2018-09-30 06:05] VITALS: TEMP 36.9
[2018-09-30] MEDS: IBUPROFEN 600 MG TABLET PO ×3 (06:05→19:37)
[2018-09-30 07:45] LABS: Add Manual Diff / Slide Review NO; Basophils Absolute Auto 0 /uL (0-100); Basophils Percent Auto 0.2 % (0-2); Eosinophils Absolute Auto 100 /uL (0-450); Eosinophils Percent Auto 0.6 % (2-4); Hematocrit 29.3 % (36-46); Hemoglobin 9.8 g/dL (12.0-16.0); Lymphocytes Absolute Auto 2600 /uL (1100-4500); Lymphocytes Percent Auto 19.3 % (25-40); Mean Corpuscular HGB Conc 33.6 % (30-36); Mean Corpuscular Hemoglobin 30.3 PG (26-34); Mean Corpuscular Volume 90.3 fL (80-100); Monocytes Absolute Auto 1000 /uL (0-900); Monocytes Percent Auto 7.6 % (3-14); Neutrophils Absolute Auto 9800 /uL (1500-7000); Neutrophils Percent Auto 72.3 % (50-75); Platelet Count 290 X10^3/uL (150-400); Red Blood Cell Count 3.25 X10^6/uL (4.0-5.2); Red Cell Distribution Width 14.3 % (11.6-14.8); White Blood Cell Count 13.5 X10^3/uL (4.5-11.0)
[2018-09-30] MEDS: ACETAMINOPHEN 325 MG TABLET 650 MG PO (09:18)
--- NOTE | 2018-09-30 11:39 | P.PNOB_ITS ---
Subjective - OB Patient comments: no complaints baby status: doing well feeding status: exclusively breast feeding Date Patient Seen: 09/30/18 Time Patient Seen: 11:37 Interval history: Patient is still having some issues with latched with the baby. She denies any headaches, scotomata, epigastric pain. She is having significant cramping of her uterus. Bleeding is mild. Exam Vital Signs (past 8 hours): - Blood pressure 120/68, pulse 68, temperature 98.6? 09/30/18 06:05 Temperature 98.4 F Narrative Exam Narrative: Abdomen is soft, nontender. Uterus is firm, at U, nontender. Mild lochia. Extremities without edema and nontender. Objective Labs Result Diagrams: 09/30/18 07:25 Labs: Laboratory Results - last 24 hr 09/30/18 07:25 WBC 13.5 H RBC 3.25 L Hgb 9.8 L Hct 29.3 L MCV 90.3 MCH 30.3 MCHC 33.6 RDW 14.3 Plt Count 290 Neut % (Auto) 72.3 Lymph % (Auto) 19.3 L [place] % (Auto) 7.6 Eos % (Auto) 0.6 L Baso % (Auto) 0.2 Neut # (Auto) 9800 H Lymph # (Auto) 2600 [place] # (Auto) 1000 H Eos # (Auto) 100 Baso # (Auto) 0 Assessment & Plan (1) Vaginal delivery: Status: Acute Assessment and plan: Normal exam. Routine care. Patient will be discharged tomorrow if doing well. Current Visit: Yes Plan day: 1 plan OB: routine care Time Spent With Patient Total time spent is greater than 50% in coordination of care (as documented) at patient's floor/unit and/or counseling patient: less than 15 minutes
--- NOTE | 2018-10-01 10:08 | PM.OBDS.1 ---
Discharge Providers Date of admission: 09/29/18 06:54 Discharge Date: 10/01/18 Primary care physician: Anoop Enriquez MD Consults: 09/29/18 08:15 Consult to Anesthesiology Urgent Comment: Consulting Provider: Anesthesiologist Reason for consultation: Epidural Has provider been notified: No 09/29/18 20:39 Consult to Floating Labor Gang Supervisor Routine Comment: Discharge provider: Ana Elizabeth MD Summary Date Patient Seen: 10/01/18 Time Patient Seen: 10:09 Procedures: Pitocin induction for maternal discomfort, epidural catheter, spontaneous vaginal delivery, repair of second-degree perineal tear. Hospital Course: Patient was admitted for Pitocin induction for maternal discomfort. She received an epidural catheter for pain control. She had a spontaneous vaginal delivery with a 2 minutes shoulder dystocia. She had repair of a second-degree perineal tear. She and the baby did well . Patient was ambulatory, no signs or symptoms of preeclampsia, urinating well. Peripartum Data Delivery Method: Natural Vaginal Laceration description: Perineal - 2nd Degree complications: none Rebecca 1: Gender: Male Disposition of : home Discharge Diagnosis (1) Vaginal delivery: Status: Acute (2) Acute blood loss anemia: Status: Acute Status at Discharge Cognitive/behavioral status at discharge: oriented Functional status at discharge: independent ambulation Overall status at discharge: patient is progressing back to baseline Time Spent with Patient Total time spent providing and/or coordinating discharge services: Less than 30 minutes Objective Labs Result Diagrams: 09/30/18 07:25 Exam Vital Signs (past 8 hours): Blood pressure 130/72, pulse 70, temperature 98.4? Narrative Exam Narrative: Abdomen is soft, nontender. Uterus is firm, U -1, nontender. Mild lochia. Extremities with trace edema and nontender. Patient's blood type is O positive and she is rubella immune. She received a Tdap in the 3rd trimester. Discharge Plan Discharge Plan Patient Disposition: Home Discharge Med Rec/Prescriptions Prescriptions: New docusate sodium [DOK] 100 mg Capsule 100 mg PO DAILY Qty: 20 RF: 0 ibuprofen 600 mg Tablet 600 mg PO Q6HR PRN (Reason: Pain, Mild (1-3)) Qty: 20 RF: 0 ferrous gluconate 324 mg (38 mg iron) Tablet 324 mg PO DAILY Qty: 30 RF: 0 Continued albuterol sulfate [Ventolin HFA] 90 MCG/PUFF HFA aerosol inhaler 2 puff INH PRN PRN (Reason: Bronchospasm) Qty: 0 RF: 0 cetirizine 10 MG tablet 10 mg PO QDAYP PRN (Reason: Allergy Symptoms) Qty: 0 RF: 0 fexofenadine 180 mg Tablet 1 tab PO QDAYP PRN (Reason: Allergy Symptoms) Qty: 0 RF: 0 [PROBIOTIC] 1 cap PO QPM Qty: 0 RF: 0 fluticasone propionate [Flovent HFA] 110 mcg/actuation HFA aerosol inhaler 2 puff INHALATION BID Qty: 12 RF: 3 Discontinued acyclovir 400 mg tablet 400 mg PO BID Qty: 60 RF: 0 No Action Double Electric Breast Pump .ROUTE .MEDSUPPLY Qty: 1 RF: 0 Follow up/Referrals: Ana Elizabeth MD [Physician] - 1 Month Anoop Enriquez MD [Primary Care Provider] - Provider Discharge Instructions Diet: Regular Activity: Nothing in vagina for 4 weeks Skin/Wound/Dressing Care Report to your healthcare provider any signs of infection, such as:: chills, fever and increased pain Discharge Data Primary Care Provider: Anoop Enriquez Attending Provider: Ana Elizabeth Admit Date/Time: 09/29/18 06:54
[2018-10-01 10:16] VITALS: BP 118/70; PULSE 78; RESP 18; TEMP 36.9
== END 2018-10-01 10:55 | disposition home or self-care (01) | DRG 806 ==
PROVIDERS: Admitting Provider Specialist; PCP Family Medicine; Visit Provider Specialist
DX: O26.813 Pregnancy related exhaustion and fatigue, third trimester (principal); D62 Acute posthemorrhagic anemia; Z37.0 Single live birth; O70.1 Second degree perineal laceration during delivery; O98.32 Other infections with a predominantly sexual mode of transmission complicating childbirth; Z3A.39 39 weeks gestation of pregnancy; B00.9 Herpesviral infection, unspecified; O66.0 Obstructed labor due to shoulder dystocia
CPT/HCPCS: 01967; 36415; 59050; 59400; 85025; 86850; 86900; 86901; G0379; J2590

== ENCOUNTER 2019-06-17 14:12 | Emergency (ER) | payer OTHER, SELFPAY ==
[2018-02-02 22:54] VITALS: BMI 25.4
[2019-06-17 14:19] VITALS: BP 104/63; PULSE 89; RESP 16; TEMP 37; O2SAT 100
[2019-06-17] MEDS: HYDROCODONE/ACET 5/325 TABLET 2 TAB PO (14:32)
[2019-06-17] MEDS: BACITRACIN OINT 0.9 GM PCKT 2 APPLIC TOP ×2 (14:33→18:59)
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
[2019-06-17 17:27] VITALS: BP 109/66; PULSE 60; O2SAT 99
[2019-06-17] MEDS: IBUPROFEN 400 MG TABLET 800 MG PO (18:59)
[2019-06-17] MEDS: HYDROCODONE/ACET 5/325 PREPACK 1 BOTTLE MISC (18:59)
[2019-06-17 19:33] VITALS: BP 119/69; PULSE 68; RESP 16; O2SAT 95
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
== END 2019-06-17 19:37 | disposition home or self-care (01) ==
PROVIDERS: Emergency Provider Nurse Practitioner Family
DX: T23.001A Burn of unspecified degree of right hand, unspecified site, initial encounter (principal)
CPT/HCPCS: 99283